=== PATIENT | female | born 1980 | race African-American/Black ===

== ENCOUNTER 2017-12-22 18:13 | Emergency (ER) | payer MEDICAID, OTHER ==
[~2017-12-22] VITALS: Ht 157.5 cm; Wt 91.0 kg
[~2017-12-22 18:13] MED LIST: CEPH500C3 PO; DOCU1CAP39 PO; FERR324T8 PO; HYDR-3535 PO
[2017-12-22 18:21] VITALS: BP 125/56; PULSE 77; RESP 16; TEMP 99.5; O2SAT 99
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
[2017-12-22] MEDS ORDERED: IBUPROFEN 600 MG TAB PO ONE (19:00)
[2017-12-22] MEDS ORDERED: IBUP-232 PO (19:26)
[2017-12-22] MEDS ORDERED: ROBA750T PO (19:26)
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
== END 2017-12-22 19:44 | disposition home or self-care (01) ==
LOC: PHEFT 18:13
DX: S16.1XXA Strain of muscle, fascia and tendon at neck level, initial encounter (principal); S39.012A Strain of muscle, fascia and tendon of lower back, initial encounter; V49.40XA Driver injured in collision with unspecified motor vehicles in traffic accident, initial encounter
CPT/HCPCS: 72040; 72100; 99283

== ENCOUNTER 2018-04-28 01:49 | Observation (INO) ==
[2018-04-28] MEDS ORDERED: Sod Chloride 0.9% Inj 1,000 ML IV.SIG ONE (02:07)
[2018-04-28] MEDS ORDERED: Morphine Inj 4 MG/ML Vial IV.PUSH ONE (02:07)
--- NOTE | 2018-04-28 02:09 | ED ---
HPI General Chief Complaint: Abdominal Pain Stated Complaint: abd pain/syncope/chills x 5 mins ago Time Seen by Provider: 04/28/18 02:07 Source: patient Mode of arrival: ambulatory Limitations: no limitations History of Present Illness HPI narrative: 37-year-old female patient presents to the ER today with 1 day history of lower abdominal pains which she currently rates an 8 out of 10 radiating to her back. She has been nauseous but denies any vomiting, diarrhea , fevers, or any other symptoms. She does not know of any exacerbating or alleviating factors. She states that she is currently on her menses. She denies any previous issues like this before. She states that she had a syncopal episode this evening, denies any injuries. She denies any chest pains or trouble breathing. Related Data Allergies Allergy/AdvReac Type Severity Reaction Status Date / Time No Known Allergies Unknown Uncoded 12/22/17 18:23 Review of Systems Except as stated in HPI: all other systems reviewed are negative PMFSH History History Provided By: Patient Social History Social History Substance History: No History of Abuse Smoking Status: Current every day smoker Tobacco Type: Cigarettes How Often Do You Have a Drink Containing Alcohol: Never Recent Travel in [place] within the Last 8 Weeks: No Recent Out of Country Travel within the Last 8 Weeks: No Exam Narrative Exam Narrative: GENERAL: Well-developed young -[place] female patient currently in moderate distress. Awake and oriented 3. SKIN: Focused skin assessment warm/dry. HEAD: Atraumatic. Normocephalic. EYES: Pupils equal and round. No scleral icterus. No injection or drainage. ENT: No nasal bleeding or discharge. Mucous membranes pink and moist. NECK: Trachea midline. No JVD. CARDIOVASCULAR: Regular rate and rhythm. No murmur appreciated. RESPIRATORY: No accessory muscle use. Clear to auscultation. Breath sounds equal bilaterally. GASTROINTESTINAL: Abdomen soft, lower abdominal tenderness without guarding or rebound, nondistended. Hepatic and splenic margins not palpable. MUSCULOSKELETAL: No obvious deformities. No clubbing. No cyanosis. No edema. NEUROLOGICAL: Awake and alert. No obvious cranial nerve deficits. Motor grossly within normal limits. Normal speech. PSYCHIATRIC: Appropriate mood and affect; insight and judgment normal. Course Hospital Course: Lab work shows significant anemia which I suspect is the cause of her syncope. Patient has been having heavy vaginal bleeding for the last 2 days, used 8 pads today. Pelvic ultrasound was done which shows abnormal endometrium, signs of uterine bleeding, and case was discussed with [employer] COUNSELOR on-call for the OB ER and she states that at this point, she will start the patient on Provera 10 mg twice a day for the next 3 days followed by daily until she sees an ELEMENTARY SCHOOL COUNSELOR. Patient is transfused with 2 units of PRBCs. Case is discussed with Dr. Araya for observation admission for the transfusions. Initial Documented Vital Signs Pulse Rate 78 04/28/18 01:54 Respiratory Rate 18 04/28/18 01:54 Blood Pressure 121/68 04/28/18 01:54 Pulse Oximetry 100 04/28/18 01:54 Last Documented Vital Signs Temperature 97.9 F 04/28/18 01:57 Pulse Rate 78 04/28/18 04:45 Respiratory Rate 18 04/28/18 01:54 Blood Pressure 128/53 L 04/28/18 04:45 Pulse Oximetry 97 04/28/18 04:45 Medical Decision Making Differential Diagnosis Differential Diagnosis: Dysmenorrhea versus UTI versus ectopic Lab Data Result diagrams: 04/28/18 02:38 04/28/18 02:38 Lab Results 04/28/18 04/28/18 Range/Units 02:38 02:38 CBC w Diff Slide review pending WBC 9.7 (4.0-11.0) th/mm3 RBC 3.67 L (4.00-5.30) mil/mm3 Hgb 7.5 L (11.6-15.3) gm/dL Hct 24.8 L (35.0-46.0) % MCV 67.5 L (80.0-100.0) fL MCH 20.5 L (27.0-34.0) pg MCHC 30.3 L (32.0-36.0) % RDW 18.3 H (11.6-17.2) % Plt Count 187 (150-450) th/mm3 MPV 7.8 (7.0-11.0) fL Neut % (Auto) 59.1 (16.0-70.0) % Lymph % (Auto) 25.4 (9.0-44.0) % Sandoval % (Auto) 10.4 H (0.0-8.0) % Eos % (Auto) 4.2 H (0.0-4.0) % Baso % (Auto) 0.9 (0.0-2.0) % Neut # (Auto) 5.7 (1.8-7.7) th/mm3 Lymph # (Auto) 2.5 (1.0-4.8) th/mm3 Sandoval # (Auto) 1.0 H (0.0-0.9) th/mm3 Eos # (Auto) 0.4 (0.0-0.4) th/mm3 Baso # (Auto) 0.1 (0.0-0.2) th/mm3 WBC Differential . Diff Scan Auto diff confirmed Differential Comment . Dimorphic RBCs Present H (None) Ovalocytes 1+ H (None) Sodium 139 (136-145) meq/L Potassium 3.3 L (3.5-5.1) meq/L Chloride 107 (98-107) meq/L Carbon Dioxide 26.1 (21.0-32.0) meq/L Anion Gap 6 (5-15) meq/L BUN 7 (7-18) mg/dL Creatinine 0.65 (0.50-1.00) mg/dL Estimated GFR Greater than 89 (>89) mL/min Random Glucose 129 H (74-106) mg/dL Calcium 8.3 L (8.5-10.1) mg/dL Total Bilirubin 0.2 (0.2-1.0) mg/dL AST 19 (15-37) U/L ALT 18 (10-53) U/L Alkaline Phosphatase 78 (45-117) U/L Total Protein 7.8 (6.4-8.2) g/dL Albumin 3.3 L (3.4-5.0) g/dL Lipase 182 (73-393) U/L Beta HCG, Quant Less than 1 (0-5) mIU/mL Imaging Data Radiologist's impression: Pelvis Ultrasound 04/28/18 03:07 CONCLUSION: 1. Abnormal appearance to the endometrium with findings suggesting fluid in the mid endometrial cavity and prominent >3.5 cm area of hyperechogenicity at the level of the cervix. 2. The ovaries have a normal appearance. No evidence for free fluid. Discharge Plan Discharge Details Anticipated Discharge Date: 04/28/18 Physicians Team ED Provider: Mabel Velasco Primary Care Provider: Primary Care Chaii,No Discharge Interventions Interventions: Vital Signs Last Done: 04/28/18 04:45 Status ED Status: With Doctor
[2018-04-28 02:45] LABS: Baso # (Auto) 0.1 th/mm3 (0.0-0.2); Baso % (Auto) 0.9 % (0.0-2.0); Eos # (Auto) 0.4 th/mm3 (0.0-0.4); Eos % (Auto) 4.2 % (0.0-4.0); Hematocrit 24.8 % (35.0-46.0); Hemoglobin 7.5 gm/dL (11.6-15.3); Lymph # (Auto) 2.5 th/mm3 (1.0-4.8); Lymph % (Auto) 25.4 % (9.0-44.0); Mean Corpuscular Hemoglobin 20.5 pg (27.0-34.0); Mean Corpuscular Volume 67.5 fL (80.0-100.0); Mean Platelet Volume 7.8 fL (7.0-11.0); Mono % (Auto) 10.4 % (0.0-8.0); Neut # (Auto) 5.7 th/mm3 (1.8-7.7); Neut % (Auto) 59.1 % (16.0-70.0); Platelet Count 187 th/mm3 (150-450); Red Blood Count 3.67 mil/mm3 (4.00-5.30); Red Cell Distribution Width 18.3 % (11.6-17.2); White Blood Count 9.7 th/mm3 (4.0-11.0)
[2018-04-28 02:52] LABS: Chloride 107 meq/L (98-107); Potassium 3.3 meq/L (3.5-5.1); Sodium 139 meq/L (136-145)
[2018-04-28 02:55] LABS: Albumin 3.3 g/dL (3.4-5.0); Anion Gap 6 meq/L (5-15); Calcium 8.3 mg/dL (8.5-10.1); Carbon Dioxide 26.1 meq/L (21.0-32.0); Lipase 182 U/L (73-393)
[2018-04-28 02:56] LABS: Blood Urea Nitrogen 7 mg/dL (7-18); Glucose,Random 129 mg/dL (74-106)
[2018-04-28 02:58] LABS: Alanine Aminotransferase 18 U/L (10-53); Aspartate Aminotransferase 19 U/L (15-37)
[2018-04-28 02:59] LABS: Glomerular Filtration Rate Greater Than 89 mL/min (>89)
[2018-04-28 03:00] LABS: Total Protein 7.8 g/dL (6.4-8.2)
[2018-04-28 03:01] LABS: Alkaline Phosphatase 78 U/L (45-117)
[2018-04-28 03:02] LABS: Mean Corpuscular HGB Conc 30.3 % (32.0-36.0)
[2018-04-28 03:48] LABS: Dimorphic RBC Present; Ovalocytes 1+
--- NOTE | 2018-04-28 04:44 | US ---
EXAM DATE: 04/28/2018 4:29 AM EDT AGE/SEX: 37 years / Female INDICATIONS: Pelvic pain with menses. CLINICAL DATA: This is the patient's initial encounter. Patient reports that signs and symptoms have been present for 1 day and indicates a pain score of 5/10. MEDICAL/SURGICAL HISTORY: . section. Tubal ligation. COMPARISON: No prior exams available for comparison. MEASUREMENTS: Uterus:__11.6 x 4.6 x 5.4 cm Endometrial Stripe:__7 mm Right Ovary:__ 2.5 x 2.6 x 1.9 cm Left Ovary:__ 2.1 x 2.0 x 1.3 cm FINDINGS: Uterus: The myometrium has homogeneous echotexture without mass. Endometrial Stripe: Homogeneous echotexture to the endometrium in the fundus. In the lower uterine s egment, there is linear hypoechogenicity suggesting endometrial fluid. At the level of the cervix, th ere is prominent hyperechogenicity which measures 3.8 x 2.6 x 3.0 cm. Right Ovary: Ovary contains no mass or significant cystic lesion. Left Ovary: Ovary contains no mass or significant cystic lesion. Fluid: No free fluid. Other: None. CONCLUSION: 1. Abnormal appearance to the endometrium with findings suggesting fluid in the mid endometrial cavi ty and prominent >3.5 cm area of hyperechogenicity at the level of the cervix. 2. The ovaries have a normal appearance. No evidence for free fluid. Electronically signed by: Devan Plummer MD 04/28/2018 4:42 AM EDT
[2018-04-28] MEDS ORDERED: Sodium Chlor 0.9% Inj 250 ML IV.SIG SCH ×2 (05:00→06:00)
[2018-04-28] MEDS ORDERED: Bisacodyl 10 MG Supp RECTAL PRN (05:15)
[2018-04-28] MEDS ORDERED: Temazepam 15 MG Capsule PO PRN (05:15)
[2018-04-28 05:48] LABS: Prothrombin Time 10.2 sec (9.8-11.6)
[2018-04-28] MEDS: Sod Chloride 0.9% Inj 1,000 ML IV.CONT SCH ×2 (07:09→17:47)
[2018-04-28 10:18] LABS: Hematocrit 21.6 % (35.0-46.0); Mean Corpuscular HGB Conc 31.1 % (32.0-36.0); Mean Corpuscular Hemoglobin 20.6 pg (27.0-34.0); Mean Corpuscular Volume 66.3 fL (80.0-100.0); Mean Platelet Volume 8.3 fL (7.0-11.0); Platelet Count 165 th/mm3 (150-450); Red Blood Count 3.27 mil/mm3 (4.00-5.30); Red Cell Distribution Width 19.2 % (11.6-17.2); White Blood Count 8.8 th/mm3 (4.0-11.0)
[2018-04-28 10:27] LABS: Hemoglobin 6.7 gm/dL (11.6-15.3)
--- NOTE | 2018-04-28 10:40 | P.HP ---
History of Present Illness Primary Care Physician: No Primary Care Physician Chief Complaint: Syncope History of Present Illness: 37-year-old female with known history of hypertension, iron deficient anemia who presented to the hospital because of syncopal episode. Patient states that she is in normal state of health until Tuesday of this week when she started having her menses. Patient states that it has been more painful and increased flow than usual. Patient states the last 2 days she has gone through 18 tampons. Yesterday while she was sitting on the couch she had significant amount of cramping in her abdomen going from the anterior to the posterior. She went in changes out her tampon. She sat back down until the cramps improved. She started feeling very hot so she stood up and walked into the kitchen, while she was getting some ice she started developing some lightheadedness and dizziness and subsequently had a syncopal episode. Patient does not know exactly how long she was out for. She did get up on her own without any neurological deficits. She went back to the couch and started feeling better she drove herself to the emergency department for evaluation. Patient does have chronic iron deficient anemia in which she does not take the ferrous sulfate because it caused her too much GI upset. Patient also has history of hypertension in which she is not taking any medications recently because her blood pressure has been doing well. Patient had workup done emergency department and found to have microcytic anemia with hemoglobin 7.5. Because the patient having a syncopal episode and anemia is recommended by the ER physician that the patient should be observed in the hospital with transfusion. - Diagnosis (1) Syncope (2) Anemia (3) Dysfunctional uterine bleeding Review of Systems All other systems reviewed negative except as stated in HPI Genitourinary: Reports abnormal periods, Reports abnormal vaginal bleeding Neurologic: Reports fainting PMFSH - History History Provided By: Patient - Medical History Medical History: Medical History (Last Updated 04/28/18 @ 10:34 by SWATI Lubin) Hypertension Iron deficiency anemia - Surgical History Surgical History: Surgical History (Last Updated 04/28/18 @ 10:34 by SWATI Lubin) History of section History of tubal ligation - Family History Family History: Family History (Last Updated 04/28/18 @ 10:34 by SWATI Lubin) Other Family history of diabetes mellitus - Tobacco History Second Hand Smoke Exposure: No Tobacco Use In Past 30 Days: Yes Smoking Status: Current every day smoker Tobacco Type: Cigarettes Cigarettes Per Day: 7 Years Smoked: 8 - Alcohol History How Often Do You Have a Drink Containing Alcohol: Never - Substance Use History Substance History: No History of Abuse - Travel History Recent Travel in the [place] Within the Last 8 Weeks: No Recent Travel Out of the Country Within the Last 8 Weeks: No - Immunization History Tetanus Immunization: <5 Years Medications and Allergies Active Medications: Active Medications Al Hydroxide/Mg Hydroxide (Milk Of Magnesia Liq) 30 ml PO Q12H PRN PRN Reason: Mild Constipation Bisacodyl (Dulcolax Supp) 10 mg RECTAL DAILY PRN PRN Reason: SEVERE CONSITIPATION Sodium Chloride (Ns Inj) 250 mls @ 15 mls/hr IV.SIG ONCE SHAKIR Stop: 04/28/18 21:39 Sodium Chloride (Ns Inj) 250 mls @ 15 mls/hr IV.SIG ONCE SHAKIR Stop: 04/28/18 22:39 Sodium Chloride (Ns Inj) 1,000 mls @ 100 mls/hr IV.CONT .Q10H [facility] Last Admin: 04/28/18 07:09 Dose: 100 mls/hr Lactulose (Lactulose Liq) 30 ml PO DAILY PRN PRN Reason: SEVERE CONSITIPATION Medroxyprogesterone Acetate (Provera) 10 mg PO BID [facility] Last Admin: 04/28/18 08:36 Dose: 10 mg Sennosides (Senokot) 17.2 mg PO Q12H PRN PRN Reason: Moderate Constipation Sodium Chloride (Ns Flush) 2 ml IV.FLUSH PRN PRN PRN Reason: FLUSH AFTER USING IV ACCESS Temazepam (Restoril) 15 mg PO HS PRN PRN Reason: INSOMNIA Allergies Allergy/AdvReac Type Severity Reaction Status Date / Time No Known Allergies Unknown Uncoded 12/22/17 18:23 Exam Vital signs: Vital Signs 04/28/18 01:54 04/28/18 01:57 04/28/18 04:45 Temperature 97.9 F Pulse Rate 78 78 Respiratory Rate 18 Blood Pressure 121/68 128/53 L Pulse Oximetry 100 97 04/28/18 08:00 Temperature 97.6 F Pulse Rate 63 Respiratory Rate 20 Blood Pressure 118/73 Pulse Oximetry Intake & Output 04/27/18 04/28/18 04/28/18 18:59 06:59 18:59 Intake Total 0 / 0 Balance 0 / 0 Weight 93 kg Intake: Oral 0 / 0 Other: Weight On Admission 93 kg Narrative: GENERAL: Well-developed, well-nourished, in no acute distress. alert and orientated HEENT: Head is normocephalic without any lesions or masses noted. Facial features are symmetric. Eyes: Pupils equal round reactive to light. Extraocular muscles are intact. Conjunctivae were clear. Oropharyngeal: Pharynx without any erythema edema. Tongue is midline without deviation. Buccal mucosa is moist without any masses or lesions NECK: Supple without any masses. Trachea midline no deviation. No JVD, no bruits are appreciated CARDIAC: Regular rhythm, regular rate. S1/S2 are heard. No murmurs gallops or rubs. LUNGS: Clear to auscultation bilaterally. No wheeze, rhonchi or rales. No use of accessory muscles on inspiration or expiration. ABDOMEN: Soft, nontender. Nondistended. Bowel sounds heard in all 4 quadrants. No organomegaly or masses. Negative rebound, negative guarding EXTREMITIES: No edema, pulses are equal bilaterally. No cyanosis or clubbing NEUROLOGY: Mood and affect appear appropriate. Cranial nerves II through XII grossly intact. Muscle strength 5/5 in upper and lower extremities bilaterally. Deep tendon reflexes are 2+ in upper and lower extremities bilaterally. Results - Labs CBC & Chem 7: 04/28/18 09:45 04/28/18 02:38 Labs: Laboratory Results - last 24 hr 04/28/18 04/28/18 04/28/18 02:38 02:38 03:50 CBC w Diff Slide review pending WBC 9.7 RBC 3.67 L Hgb 7.5 L Hct 24.8 L MCV 67.5 L MCH 20.5 L MCHC 30.3 L RDW 18.3 H Plt Count 187 MPV 7.8 Neut % (Auto) 59.1 Lymph % (Auto) 25.4 [place] % (Auto) 10.4 H Eos % (Auto) 4.2 H Baso % (Auto) 0.9 Neut # (Auto) 5.7 Lymph # (Auto) 2.5 [place] # (Auto) 1.0 H Eos # (Auto) 0.4 Baso # (Auto) 0.1 WBC Differential . Diff Scan Auto diff confirmed Differential Comment . Dimorphic RBCs Present H Ovalocytes 1+ H PT INR Sodium 139 Potassium 3.3 L Chloride 107 Carbon Dioxide 26.1 Anion Gap 6 BUN 7 Creatinine 0.65 Estimated GFR Greater than 89 Random Glucose 129 H Calcium 8.3 L Total Bilirubin 0.2 AST 19 ALT 18 Alkaline Phosphatase 78 Total Protein 7.8 Albumin 3.3 L Lipase 182 Beta HCG, Quant Less than 1 Blood Type B Positive Antibody Screen Negative MTS Gel Crossmatch 04/28/18 04/28/18 05:13 05:31 CBC w Diff WBC RBC Hgb Hct MCV MCH MCHC RDW Plt Count MPV Neut % (Auto) Lymph % (Auto) [place] % (Auto) Eos % (Auto) Baso % (Auto) Neut # (Auto) Lymph # (Auto) [place] # (Auto) Eos # (Auto) Baso # (Auto) WBC Differential Diff Scan Differential Comment Dimorphic RBCs Ovalocytes PT 10.2 INR 1.0 Sodium Potassium Chloride Carbon Dioxide Anion Gap BUN Creatinine Estimated GFR Random Glucose Calcium Total Bilirubin AST ALT Alkaline Phosphatase Total Protein Albumin Lipase Beta HCG, Quant Blood Type Antibody Screen MTS Gel Crossmatch See Detail - Imaging Impressions Pelvis Ultrasound 04/28/18 03:07 CONCLUSION: 1. Abnormal appearance to the endometrium with findings suggesting fluid in the mid endometrial cavity and prominent >3.5 cm area of hyperechogenicity at the level of the cervix. 2. The ovaries have a normal appearance. No evidence for free fluid. Caprini VTE Risk Assessment Caprini VTE Risk Assessment: No/Low Risk (score <= 1) Caprini Risk Assessment Model: Point Value = 1 Point Value = 2 Point Value = 3 Point Value = 5 Age 41-60 Minor surgery BMI > 25 kg/m2 Swollen legs Varicose veins or History of unexplained or recurrent spontaneous Oral contraceptives or hormone replacement Sepsis (< 1 month) Serious lung disease, including pneumonia (< 1 month) Abnormal pulmonary function Acute myocardial infarction Congestive heart failure (< 1 month) History of inflammatory bowel disease Medical patient at bed rest Age 61-74 Arthroscopic surgery Major open surgery (> 45 min) Laparoscopic surgery (> 45 min) Malignancy Confined to bed (> 72 hours) Immobilizing plaster cast Central venous access Age >= 75 History of VTE Family history of VTE Factor V Leiden Prothrombin [id number] Lupus anticoagulant Anticardiolipin antibodies Elevated serum homocysteine Heparin-induced thrombocytopenia Other congenital or acquired thrombophilia Stroke (< 1 month) Elective arthroplasty Hip, pelvis, or leg fracture Acute spinal cord injury (< 1 month) Prophylaxis Regimen: Total Risk Factor Score Risk Level Prophylaxis Regimen 0-1 Low Early ambulation 2 Moderate Order ONE of the following: *Sequential Compression Device (SCD) *Heparin 5000 units SQ BID 3-4 Higher Order ONE of the following medications: *Heparin 5000 units SQ TID *Enoxaparin/Lovenox 40 mg SQ daily (WT < 150 kg, CrCl > 30 mL/min) *Enoxaparin/Lovenox 30 mg SQ daily (WT < 150 kg, CrCl > 10-29 mL/min) *Enoxaparin/Lovenox 30 mg SQ BID (WT < 150 kg, CrCl > 30 mL/min) AND/OR *Sequential Compression Device (SCD) 5 or more Highest Order ONE of the following medications: *Heparin 5000 units SQ TID (Preferred with Epidurals) *Enoxaparin/Lovenox 40 mg SQ daily (WT < 150 kg, CrCl > 30 mL/min) *Enoxaparin/Lovenox 30 mg SQ daily (WT < 150 kg, CrCl > 10-29 mL/min) *Enoxaparin/Lovenox 30 mg SQ BID (WT < 150 kg, CrCl > 30 mL/min) AND *Sequential Compression Device (SCD) Assessment and Plan - Assessment (1) Syncope Code(s): R55 - Syncope and collapse Status: Acute (2) Anemia Code(s): D64.9 - Anemia, unspecified Status: Acute (3) Dysfunctional uterine bleeding Code(s): N93.8 - Other specified abnormal uterine and vaginal bleeding Status : Acute - Plan Syncopal episode -Likely from orthostasis secondary to combination of abnormally heavy period this month, chronic anemia -Stat CT of the brain did not indicate any acute abnormality -Orthostatic vitals were normal, however patient already received IV fluid and 1 unit of blood prior to having orthostatics checked Anemia -Patient with chronic iron deficient anemia, she does not take any iron supplementation due to GI upset -Patient also with abnormally heavy period this month, possible dysfunctional uterine bleeding -Transfuse 2 units of packed red blood cells -Laboratory studies confirm severe iron deficient anemia with ferritin of 3, iron of 18. -It would behoove the patient that she is on iron supplementation, however she refuses to take oral replacement therapy due to GI upset. Would recommend the patient follow-up with her primary medical doctor and possible arrange IV iron to be given on a regular basis. Dysfunctional uterine bleeding -ER physician consulted with [facility] who recommended the patient start on Provera 10 mg twice a day for 3 days and follow-up with [facility] [employer] in the outpatient setting. -Patient's uterine bleeding has stopped currently secondary to the administration of Provera History of hypertension -Blood pressure currently stable at this time DVT prevention -Sequential compression devices -Avoid chemical prophylaxis secondary to anemia Discharge Planning: Discharge home in stable condition Activity: Ad bhavana. Diet: Regular diet Medication per medication reconciliation Follow-up with primary medical doctor in 1 week
[2018-04-28 11:03] LABS: % Iron Saturation 4.2 % (20-50)
--- NOTE | 2018-04-28 14:25 | CT ---
EXAM DATE: 04/28/2018 2:21 PM EDT AGE/SEX: 37 years / Female INDICATIONS: Syncopal episode last night. CLINICAL DATA: This is the patient's initial encounter. Patient reports that signs and symptoms have been present for 1 day and indicates a pain score of 0/10. MEDICAL/SURGICAL HISTORY: Hypertension. Tubal ligation. section. RADIATION DOSE: 62.00 CTDI (mGy) COMPARISON: No prior exams available for comparison. TECHNIQUE: CT of the head without contrast. Using automated exposure control and adjustment of the mA and/or kV according to patient size, radiation dose was kept as low as reasonably achievable to ob tain optimal diagnostic quality images. DICOM format image data is available electronically for revi ew and comparison. FINDINGS: Cerebrum: The ventricles are normal for age. No evidence of midline shift, mass lesion, hemorrhage or acute infarction. No extraaxial fluid collections are seen. Posterior Fossa: The cerebellum and brainstem are intact. The 4th ventricle is midline. The cerebe llopontine angle is unremarkable. Extracranial: The visualized portion of the orbits is intact. Skull: The calvaria is intact. No evidence of skull fracture. CONCLUSION: 1. Negative CT Head non contrast. . Electronically signed by: Antoine Caputo MD 04/28/2018 2:24 PM EDT
[2018-05-02 17:55] VITALS: BP 108/78; PULSE 80; RESP 16; TEMP 97.8; O2SAT 100
== END 2018-04-28 18:52 | disposition home or self-care (01) ==
LOC: PH3 01:49 → PHED 01:49 → PHEDA 01:49 → PH3 05:54
PROVIDERS: ADMIT Family Medicine; ATTEND Family Medicine